=== PATIENT | male | born 1955 | race Caucasian/White ===

== ENCOUNTER 2018-02-18 06:21 | Day surgery (SDC) | payer OTHER ==
[2018-02-18] MEDS: CEFAZOLIN 2 GM/50 ML (PMX) 50 ML IVPB (07:00)
[2018-02-18] MEDS: SOD CHLORIDE 0.9% 1,000 ML IV (07:00)
[2018-02-18] MEDS ORDERED: MIDAZOLAM 1 MG/ML 2 ML INJ (07:52)
[2018-02-18] MEDS: BUPIVACAINE 0.25% (MPF) 30 ML INJ (08:36)
[2018-02-18] MEDS ORDERED: TOBRAMYCIN 1.2 GM POWDER (08:53)
[2018-02-18] MEDS: PIPER-TAZO 3.375 GM IV (PMX) 100 ML IVPB (09:00)
[2018-02-18] MEDS ORDERED: LIDOCAINE 2% (SDV) 5 ML INJ (09:12)
[2018-02-18] MEDS ORDERED: PROPOFOL 20 ML (09:12)
[2018-02-18] MEDS ORDERED: ROCURONIUM 50 MG INJ (09:12)
[2018-02-18] MEDS ORDERED: NEOSTIGMINE 3 MG/3 ML SYRINGE (09:15)
[2018-02-18] MEDS ORDERED: ONDANSETRON 4 MG INJ (09:15)
[2018-02-18] MEDS ORDERED: CEFAZOLIN 1 GM INJ (09:15)
[2018-02-18] MEDS ORDERED: GLYCOPYRROLATE 0.4 MG INJ (09:15)
[2018-02-18] MEDS ORDERED: MEPERIDINE 25 MG INJ IV (09:30)
[2018-02-18] MEDS ORDERED: FENTAnyl 50 MCG/ML VIAL IV (09:30)
[2018-02-18] MEDS ORDERED: DIPHENHYDRAMINE 50 MG INJ IV (09:30)
[2018-02-18] MEDS ORDERED: HYDROmorphONE (0.2 MG/ML) 10ML SYG IV (09:30)
[2018-02-18] MEDS: HYDROmorphONE (0.2 MG/ML) 10ML SYG IV (10:09)
[2018-02-18] MEDS: ONDANSETRON 4 MG INJ IV (10:09)
[2018-02-18] MEDS: HYDROCODONE/APAP (5/325) TAB PO (10:16)
== END 2018-02-18 11:18 | disposition home or self-care (01) ==
LOC: SDS 06:21
DX: L02.211 Cutaneous abscess of abdominal wall (principal); L98.499 Non-pressure chronic ulcer of skin of other sites with unspecified severity; E66.9 Obesity, unspecified; Z68.27 Body mass index [BMI] 27.0-27.9, adult
CPT/HCPCS: 14000; 87070; 87075; 88307